=== PATIENT | female | born 1945 | race Caucasian/White ===

== ENCOUNTER 2018-01-18 17:41 | Emergency (ER) | payer OTHER ==
[~2018-01-18] VITALS: Ht 162.6 cm; Wt 81.6 kg
[2018-01-18 17:41] VITALS: BP 159/87
[2018-01-18] MEDS ORDERED: OXYMETAZOLINE HCL NASAL SPRAY 30 ML BOTTLE NS ONE ×2 (19:00→19:02)
== END 2018-01-18 19:48 | disposition home or self-care (01) ==
LOC: ER 18:01
DX: R04.0 Epistaxis (principal); F10.21 Alcohol dependence, in remission; Y90.9 Presence of alcohol in blood, level not specified
CPT/HCPCS: 99281; A4606; Z7502; Z7610

== ENCOUNTER 2020-08-03 15:13 | Emergency (ER) | payer OTHER ==
[~2020-08-03] VITALS: Ht 162.6 cm; Wt 83.5 kg
--- NOTE | 2020-08-03 15:26 | NUR ---
SELF PRESENTS TO ED C/O L SIDE BLEEDING FROM THE NOSE, STATES IT STARTED AT 3AM THIS MORNING AND WAS BLEEDING FOR ABOUT 15 MINS BEFOR IT STOPPED. PT GOT CONCERN WHEN SHE STARTED BLEEDING AGAIN FROM THE SAME NOSTRIL AT 03PM. DENIES DIZZINESS. PT IS HYPERTENSIVE MONITORING TECH. AWAITNG MD SPARROW.
--- NOTE | 2020-08-03 15:31 | NUR ---
DR ZELAYA AT BEDSIDE FOR EVAL.
[2020-08-03] MEDS ORDERED: DIGO125T PO (15:32)
[2020-08-03] MEDS ORDERED: HYDR-4076 PO (15:32)
[2020-08-03] MEDS ORDERED: LOSA100T31 PO (15:32)
--- NOTE | 2020-08-03 15:35 | NUR ---
SAP ARCHITECT AT BEDSIDE FOR BLOOD DRAW.
[2020-08-03 15:41] LABS: BASOPHILS % (AUTO) 0.5 % (0.0-2.0); EOSINOPHILS % (AUTO) 0.6 % (0.0-6.0); HEMATOCRIT 52 % (33-45); HEMOGLOBIN 17.5 g/dL (11.5-14.8); LYMPHOCYTES # (AUTO) 1.3 K/uL (0.8-4.8); LYMPHOCYTES % (AUTO) 20.6 % (20.0-44.0); MEAN CORPUSCULAR HGB CONC 34 g/dl (31.0-36.0); MEAN CORPUSCULAR VOLUME 98 fL (82-100); MONOCYTES # (AUTO) 0.9 K/uL (0.1-1.30); MONOCYTES % (AUTO) 13.7 % (2.0-12.0); NEUTROPHILS # (AUTO) 4.1 K/uL (1.8-8.9); NEUTROPHILS % (AUTO) 64.6 % (43.0-81.0); PLATELET COUNT (AUTO) 146 K/uL (150-450); RED BLOOD CELL COUNT(AUTO) 5.28 MIL/uL (4.0-5.2); WHITE BLOOD COUNT (AUTO) 6.4 K/uL (4.3-11.0)
--- NOTE | 2020-08-03 16:07 | NUR ---
Patient discharged to home in stable condition. Written and verbal after care instructions given. Patient verbalizes understanding of instruction.
[2020-08-03 16:08] VITALS: BP 162/100
== END 2020-08-03 16:08 | disposition home or self-care (01) ==
LOC: ER 15:15
DX: R04.0 Epistaxis (principal); I10 Essential (primary) hypertension; Z79.899 Other long term (current) drug therapy
CPT/HCPCS: 36415; 85025-TC; 85730-TC

== ENCOUNTER 2020-08-04 23:14 | Emergency (ER) | payer MEDICARE, OTHER ==
[~2020-08-04] VITALS: Ht 162.6 cm; Wt 83.5 kg
[~2020-08-04 23:14] MED LIST: DIGO125T PO; HYDR-4076 PO; LOSA100T31 PO
--- NOTE | 2020-08-04 23:25 | NUR ---
PT BIBSELF C/O NOSEBLEED SINCE 2229 TONIGHT. PT [id number] BREATHING EVENLY AND UNLABORED. PT PRESENTS HYPERTENSIVE 188/109, THOUGH PT STATES THAT SHE "TOOK HER BLOOD PRESSURE MEDS AT 1800". PT ATTACHED TO MONITOR AND POX. MD AT BEDSIDE FOR EVAL. PT GIVEN BLANKET AND CALL LIGHT WITHIN REACH
[2020-08-04] MEDS ORDERED: CLONIDINE HCL 0.1 MG TABLET ONE (23:47)
[2020-08-05] MEDS ORDERED: CLONIDINE HCL 0.1 MG TABLET PO ONE
--- NOTE | 2020-08-05 00:20 | NUR ---
Patient discharged to home in stable condition. Written and verbal after care instructions given. Patient verbalizes understanding of instruction. Pt ambulatory with a steady gait.
[2020-08-05 00:57] VITALS: BP 160/99
== END 2020-08-05 00:20 | disposition home or self-care (01) ==
LOC: ER 23:18
DX: R04.0 Epistaxis (principal); I10 Essential (primary) hypertension; Z79.899 Other long term (current) drug therapy

== ENCOUNTER 2024-04-25 08:47 | Emergency (ER) | payer OTHER, MEDICARE ==
[~2024-04-25] VITALS: Ht 162.6 cm; Wt 77.1 kg
[2024-04-25] MEDS ORDERED: ACETAMINOPHEN ES 500 MG TABLET ONE ×2 (08:55→10:42)
[2024-04-25] MEDS: ACETAMINOPHEN ES 500 MG TABLET PO ONE (08:59)
[2024-04-25] MEDS ORDERED: IOHEXOL-300 100 ML VIAL IV ONE (09:18)
[2024-04-25] MEDS ORDERED: CT SWABBABLE VALVE TRANS SET 1 EA INFUS.SET MC ONE (09:19)
[2024-04-25] MEDS ORDERED: IV NS 0.9% 250 ML IV ONE (09:19)
[2024-04-25 10:45] VITALS: BP 136/80; TEMP 98.9; O2SAT 98
== END 2024-04-25 10:46 | disposition home or self-care (01) ==
LOC: ER 08:50
DX: S00.83XA Contusion of other part of head, initial encounter (principal); I10 Essential (primary) hypertension; Z79.899 Other long term (current) drug therapy; Z86.79 Personal history of other diseases of the circulatory system; V03.10XA Pedestrian on foot injured in collision with car, pick-up truck or van in traffic accident, initial encounter; Y93.01 Activity, walking, marching and hiking; Y92.89 Other specified places as the place of occurrence of the external cause; Y99.8 Other external cause status
CPT/HCPCS: 99285; 72125; 71260; 70450; 74177; J7050; Q9967